=== PATIENT | female | born 1980 | race Caucasian/White ===

== ENCOUNTER → 2019-03-22 | Outpatient (CLI) | payer BC | END | disposition home or self-care (01) | LOC: CFH 13:11 | PROVIDERS: ATTEND Chiropractor | DX: M48.02 Spinal stenosis, cervical region (principal); M48.07 Spinal stenosis, lumbosacral region; M41.84 Other forms of scoliosis, thoracic region; S13.4XXA Sprain of ligaments of cervical spine, initial encounter; S23.3XXA Sprain of ligaments of thoracic spine, initial encounter; S33.5XXA Sprain of ligaments of lumbar spine, initial encounter; S33.8XXA Sprain of other parts of lumbar spine and pelvis, initial encounter; V89.2XXA Person injured in unspecified motor-vehicle accident, traffic, initial encounter; Y93.89 Activity, other specified; Y92.89 Other specified places as the place of occurrence of the external cause; Y99.8 Other external cause status | CPT/HCPCS: 72052; 72072; 72100; 72170 ==

== ENCOUNTER 2019-06-12 07:42 | Emergency (ER) | payer BC ==
[~2019-06-12] VITALS: Ht 167.6 cm; Wt 52.7 kg
[2019-06-12 07:45] VITALS: BP 133/82
--- NOTE | 2019-06-12 08:00 | NUR ---
PATIENT BROUGHT BACK FROM TRIAGE WITH CHIEF COMPLAINT OF LEFT JAW PAIN AFTER FIT BY EXERCISE EQUIPTMENT FAILURE YESTERDAY. TODAY WOKE WITH SWELLING. PATIENT IS ALERT, ORIENTED, WARM AND DRY.
--- NOTE | 2019-06-12 08:06 | NUR ---
MEMO SANDY AT BEDSIDE FOR EVALUATION.
--- NOTE | 2019-06-12 08:18 | NUR ---
PT TO IMAGING
--- NOTE | 2019-06-12 08:58 | NUR ---
DISCHARGE INSTRUCTIONS REVIEWED
== END 2019-06-12 09:09 | disposition home or self-care (01) ==
LOC: ED 08:37
DX: S00.83XA Contusion of other part of head, initial encounter (principal); X58.XXXA Exposure to other specified factors, initial encounter; Y93.89 Activity, other specified; Y92.89 Other specified places as the place of occurrence of the external cause; Y99.8 Other external cause status
CPT/HCPCS: 70486; 99284

== ENCOUNTER 2019-07-07 14:15 | Emergency (ER) | payer BC ==
[~2019-07-07] VITALS: Ht 167.6 cm; Wt 52.0 kg
[2019-07-07 14:26] VITALS: BP 140/95
--- NOTE | 2019-07-07 14:33 | NUR ---
PT REFUSES C COLLAR
--- NOTE | 2019-07-07 14:51 | NUR ---
PT AT CT
[2019-07-07] MEDS ORDERED: CYCLOBENZAPRINE 10 MG TABLET ONE (14:58)
[2019-07-07] MEDS ORDERED: CYCLOBENZAPRINE 10 MG TABLET PO ONE (15:00)
--- NOTE | 2019-07-07 15:08 | NUR ---
MEDS ADMIN PER JUL.
== END 2019-07-07 15:29 | disposition home or self-care (01) ==
LOC: ED 15:15
DX: S16.1XXA Strain of muscle, fascia and tendon at neck level, initial encounter (principal); V49.49XA Driver injured in collision with other motor vehicles in traffic accident, initial encounter; Y93.89 Activity, other specified; Y92.410 Unspecified street and highway as the place of occurrence of the external cause; Y99.8 Other external cause status
CPT/HCPCS: 72125; 99284

== ENCOUNTER → 2019-07-12 | Outpatient (CLI) | payer BC | END | disposition home or self-care (01) | LOC: CFH 10:59 | PROVIDERS: ATTEND Chiropractor | DX: S23.3XXA Sprain of ligaments of thoracic spine, initial encounter (principal); S33.8XXA Sprain of other parts of lumbar spine and pelvis, initial encounter; S33.6XXA Sprain of sacroiliac joint, initial encounter; M47.817 Spondylosis without myelopathy or radiculopathy, lumbosacral region; M99.02 Segmental and somatic dysfunction of thoracic region; M41.84 Other forms of scoliosis, thoracic region; M48.07 Spinal stenosis, lumbosacral region; X58.XXXA Exposure to other specified factors, initial encounter; Y93.89 Activity, other specified; Y92.89 Other specified places as the place of occurrence of the external cause; Y99.8 Other external cause status | CPT/HCPCS: 72072; 72100; 72170 ==